=== PATIENT | male | born 1980 | race Caucasian/White ===

== ENCOUNTER 2020-06-20 18:56 | Emergency (ER) | payer OTHER, SELFPAY ==
[2020-06-20 18:56] VITALS: BP 161/112; PULSE 92; RESP 16; TEMP 36.4; O2SAT 98; BMI 38.9
--- NOTE | 2020-06-20 19:23 | ED.VIS.GEN ---
History of Present Illness Chief Complaint: Laceration Informant: Patient Narrative: 39-year-old male with no significant past medical history presents with concern for right lower extremity laceration. States that he fell into a sharp metal object at work causing a laceration to his right lower extremity. Denies any numbness or tingling. Past Medical History - Allergies and Home Meds Allergies/Adverse Reactions: Allergies No Known Allergies Allergy (Verified 06/20/20 18:58) Primary Care Physician: Francisco Gill MD [STAFF PHYSICIAN] - Past Medical History: None Surgical History: noncontributory Lives: With Family Review of Systems General: Denies: Chills, Fever, Sweats Eyes: Denies: Visual changes - bilaterally, Diplopia ENT: Denies: Rhinorrhea, Sore throat Cardiovascular: Denies: Chest pain, Palpitations Respiratory: Denies: Dyspnea, Cough, Dyspnea on exertion Gastrointestinal: Denies: Abdominal pain, Nausea, Vomiting, Diarrhea, Melena, Hematochezia Genitourinary: Denies: Dysuria, Hematuria, Frequency Musculoskeletal: Denies: Back pain, Extremity Pain Skin: Reports: Wounds. Denies: Rash Neurological: Denies: Headache, Weakness, Numbness Physical Exam Vital Signs/Narrative: Vital Signs Temp Pulse Resp BP Pulse Ox 06/20/20 18:56 97.5 F L 92 16 161/112 H 98 Inital Vital Signs reviewed: Yes General: Well nourished, Well developed, No Acute Distress Head: Normocephalic, Atraumatic Eyes: Perrl, EOMI ENT: Moist mucous membranes, No rhinorrhea Neck: Supple, Nontender Cardiovascular: Regular rate, Regular rhythm, No murmurs Respiratory: No distress, CTA bilaterally, Chest nontender Abdomen: Soft, Nontender, Nondistended, Normal bowel sounds Back: Nontender, Normal Inspection Extremities: Nontender, No edema Skin: Normal color, No rash, - - Linear L shaped laceration to the RLE. Gaping. 7 cm. Neurological: Alert, Oriented x3, Cranial nerves II-XII grossly intact, Normal Strength, Normal Sensation Psychological: Normal affect, Normal Mood Diagnostic/Tx/Re-eval - Medical Decision Making Patient appears well and nontoxic. Laceration repaired with eleven 4-0 Ethilon sutures. Wound was thoroughly irrigated following local anesthetization with lidocaine and epinephrine. Patient will be covered with Keflex prophylactically for 5 days. Asked to follow-up with primary care. Tetanus updated. Discharged home in stable condition. Procedures - Lacerations No standard instances Length: 2.76 in Depth: Sub Q Shape: Flap Laceration repair: Irrigated, Lidocaine with epi Irrigated (ml): 250 Number of Sutures/Cherie: 11 Suture Information: Ethilon, Simple, 4-0 ED Disposition - Plan for ED Patient: Disposition: Home or Assisted Living Instructions: ED Laceration All Closures Prescriptions: Cephalexin [Keflex] 500 mg PO Q6 #20 cap Prescription Printed Referrals: Francisco Gill MD [STAFF PHYSICIAN] - Additional Instructions: These follow-up at either this emergency department or with your primary care physician in 10 days for removal of the sutures. Return for any drainage or surrounding redness.
[2020-06-20] MEDS: Diphth,Pertuss(Acell),Tet Vac 0.5 ML Vial IM (21:07)
[2020-06-20] MEDS: Cephalexin 250 MG Capsule 500 MG PO (21:10)
== END 2020-06-20 21:26 | disposition home or self-care (01) ==
PROVIDERS: Emergency Provider Emergency Medicine; PCP Family Medicine
DX: S81.811A Laceration without foreign body, right lower leg, initial encounter (principal); W19.XXXA Unspecified fall, initial encounter
CPT/HCPCS: 12002; 90715; 96372; 99283

== ENCOUNTER → 2020-07-31 09:20 | Outpatient (CLI) | payer OTHER, SELFPAY ==
[2020-07-31 11:00] LABS: ALB/GLOB Ratio 0.9 RATIO (0.9-2.4); AST(SGOT) 19 U/L (15-37); Alanine Aminotransfer ALT/SGPT 35 U/L (16-61); Albumin, Serum 3.6 g/dL (3.2-5.0); Alkaline Phosphatase 72 U/L (45-117); Anion Gap 4 (5-15); BUN 16 mg/dL (7-18); BUN/Creat Ratio 17.6 RATIO (10-20); Calcium,Total 8.4 mg/dL (8.5-10.1); Chloride 106 mmol/L (98-107); Cholesterol 142 mg/dL (200); Creatinine, Serum 0.91 mg/dL (0.70-1.30); EST Glomerular Filtration Rate 98 mL/min (>60); Est Glom Filt Rate - Afr Amer 119 mL/min (>60); Globulin 3.9 g/dL (2.2-4.2); Glucose 91 mg/dL (74-106); High Density Lipoprotein 46 mg/dL; Protein, Total 7.5 g/dL (6.4-8.2); Sodium Level 140 mmol/L (136-145); Thyroid Stim Hormone (TSH) 1.02 uIU/mL (0.358-3.74); Triglycerides 83 mg/dL; Very Low Density Lipoprotein 17 mg/dL (5-40)
== END ==
PROVIDERS: PCP Family Medicine; Referring Provider Family Medicine; Visit Provider Family Medicine
DX: Z00.00 Encounter for general adult medical examination without abnormal findings (principal); E78.1 Pure hyperglyceridemia
CPT/HCPCS: 36415; 80053; 80061; 84443

== ENCOUNTER → 2020-08-20 | Outpatient (CLI) | payer OTHER, SELFPAY | END | disposition home or self-care (01) | PROVIDERS: PCP Family Medicine; Visit Provider Family Medicine | DX: U07.1 COVID-19 (principal); J32.9 Chronic sinusitis, unspecified | CPT/HCPCS: 87635; U0003 ==

== ENCOUNTER → 2020-08-24 11:11 | Outpatient (CLI) | payer OTHER, SELFPAY ==
--- NOTE | 2020-08-24 11:16 | RAD_ITS ---
STUDY: X-RAY CHEST REASON FOR EXAM: Male, 40 years old. COUGH, SOB AND CHEST TIGHTNESS. PATIENT STATES WAS EXPOSED TO COVID. TECHNIQUE: PA and lateral views of the chest. COMPARISON: None. FINDINGS: The lungs are clear and expanded. There is no demonstrated pleural abnormality. Normal size heart. Normal mediastinum and kali. Normal visualized pulmonary arteries. Normal visualized aortic arch and descending thoracic aorta. Normal visualized thoracic spine. Normal visualized ribs, clavicles, and shoulders. There is no demonstrated abnormality of the visualized soft tissue structures of the upper abdomen. RAD/Chest PA and Lateral IMPRESSION: Normal x-ray examination of the chest. Electronically Signed: Ed Forrester, at 13:21 EST , Service support ,
== END ==
PROVIDERS: PCP Family Medicine; Referring Provider Family Medicine; Visit Provider Family Medicine
DX: R07.9 Chest pain, unspecified (principal)
CPT/HCPCS: 71046

== ENCOUNTER → 2020-11-23 | Outpatient (CLI) | payer OTHER, SELFPAY | END | disposition home or self-care (01) | LOC: LABSPEC 15:52 | PROVIDERS: PCP Family Medicine; Referring Provider Family Medicine; Visit Provider Family Medicine | DX: J32.9 Chronic sinusitis, unspecified (principal); R09.89 Other specified symptoms and signs involving the circulatory and respiratory systems | CPT/HCPCS: 87635; U0005; U0003 ==

== ENCOUNTER → 2021-09-18 | Outpatient (CLI) | payer OTHER, SELFPAY | END | disposition home or self-care (01) | LOC: LABSPEC 15:18 | PROVIDERS: PCP Family Medicine; Visit Provider Family Medicine | DX: U07.1 COVID-19 (principal) | CPT/HCPCS: 87635; U0005; U0003 ==

== ENCOUNTER → 2023-08-10 | Outpatient (CLI) | payer OTHER, SELFPAY ==
[2023-08-10 11:05] LABS: AST(SGOT) 23 U/L (15-37); Alanine Aminotransfer ALT/SGPT 32 U/L (16-61); Albumin, Serum 3.9 g/dL (3.2-5.0); Alkaline Phosphatase 68 U/L (45-117); Anion Gap 7 (5-15); BUN 17 mg/dL (7-18); BUN/Creat Ratio 18.9 RATIO (10-20); Calcium,Total 8.9 mg/dL (8.5-10.1); Chloride 104 mmol/L (98-107); EST Glomerular Filtration Rate 98 mL/min (>60); Est Glom Filt Rate - Afr Amer 118 mL/min (>60); Globulin 3.8 g/dL (2.2-4.2); Glucose 98 mg/dL (74-106); Potassium 3.8 mmol/L (3.5-5.1); Protein, Total 7.7 g/dL (6.4-8.2); Sodium Level 138 mmol/L (136-145)
[2023-08-10 11:14] LABS: Microalbumin,Random Urine 13.6 mg/L (NO RANGE EST.); Microalbumin:Creatinine Ratio 27.4 mg/g CRE (<30 mg/g CRE)
== END | disposition home or self-care (01) ==
LOC: MFPLAB 08:25
PROVIDERS: PCP Family Medicine; Visit Provider Family Medicine
DX: I10 Essential (primary) hypertension (principal)
CPT/HCPCS: 36415; 80053; 82043; 82570

== ENCOUNTER → 2024-10-31 | Outpatient (CLI) | payer OTHER, SELFPAY ==
[2024-10-31 15:53] LABS: ALB/GLOB Ratio 0.9 RATIO (0.9-2.4); AST(SGOT) 20 U/L (15-37); Alanine Aminotransfer ALT/SGPT 35 U/L (16-61); Albumin, Serum 3.7 g/dL (3.2-5.0); Alkaline Phosphatase 71 U/L (45-117); Anion Gap 5 (5-15); BUN 19 mg/dL (7-18); BUN/Creat Ratio 20.6 RATIO (10-20); Calcium,Total 9.2 mg/dL (8.5-10.1); Chloride 106 mmol/L (98-107); Cholesterol 176 mg/dL (200); Creatinine, Serum 0.92 mg/dL (0.70-1.30); EST Glomerular Filtration Rate 94 mL/min (>60); Est Glom Filt Rate - Afr Amer 114 mL/min (>60); Globulin 4.1 g/dL (2.2-4.2); Glucose 111 mg/dL (74-106); High Density Lipoprotein 49 mg/dL; Potassium 4.3 mmol/L (3.5-5.1); Protein, Total 7.8 g/dL (6.4-8.2); Sodium Level 139 mmol/L (136-145); Triglycerides 179 mg/dL; Very Low Density Lipoprotein 36 mg/dL (5-40)
[2024-10-31 16:32] LABS: Hemoglobin A1c 5.5 % (3.8-5.6)
[2024-10-31 17:02] LABS: Microalbumin,Random Urine 58.9 mg/L (NO RANGE EST.)
== END | disposition home or self-care (01) ==
LOC: MFPLAB 11:20
PROVIDERS: PCP Family Medicine; Referring Provider Family Medicine; Visit Provider Family Medicine
DX: I10 Essential (primary) hypertension (principal); E66.9 Obesity, unspecified
CPT/HCPCS: 36415; 80053; 80061; 82043; 82570; 83036

== ENCOUNTER 2025-06-08 08:31 | Day surgery (SDC) | payer OTHER, SELFPAY ==
[2025-06-08] VITALS (8 sets, daily range): BP systolic 138–165; BP diastolic 79–87; PULSE 75–99; RESP 16–17; TEMP 36.1–37.1; O2SAT 94–98; BMI 42.7
[2025-06-08] MEDS: Lactated Ringers 1,000 ML 15 ML IV (08:53)
--- NOTE | 2025-06-08 08:53 | HP.PCM_ITS ---
HPI - General General Date of Admission: 06/08/25 Date of Service: 06/08/25 Chief Complaint: Screening colonoscopy HPI Narrative SIMI HIGGINBOTHAM, is a 44 M who presents for screening colonoscopy. *[facility] established 8.1.25 pt presents to get scheduled for a colonoscopy. Has previously had 2 scopes in 2009 and 2010. Is not currently having any GI symptoms of concern and is scheduling for screening purposes. [facility] Medical History Wears glasses Asthma Former smoker Hypertension Home Medications ?Medication ?Instructions ?Recorded ?Last Taken ?Type loratadine 10 mg tablet (Claritin) 10 mg PO DAILY PRN allergy symptoms 06/30/20 06/07/25 History hydrochlorothiazide 12.5 mg tablet 12.5 mg PO QDAY 10/1506/07/25 History lisinopril 40 mg tablet 40 mg PO QDAY 04/21/2506/07 History Allergy/AdvReac Type Severity Reaction Status Date / Time No Known Allergies Allergy Verified 06/08/25 08:53 Family History Other Lung cancer Surgical History History of esophagogastroduodenoscopy (EGD) History of colonoscopy History of medial meniscus repair of left knee History of lateral meniscus repair of right knee History of surgery on lower extremity Hx of fracture of lower leg Social History Smoking Status: Former smoker alcohol intake: current alcohol intake frequency: holidays/special occasions only substance use type: does not use frequency: 3-4 times per week ROS Constitutional Constitutional: Denies fatigue, fever(s), poor appetite, weight gain or weight loss Gastrointestinal Gastrointestinal: Denies belching, bloating, change in bowel habits, change in stool character, chewing difficulty, coffee ground emesis, constipation, cramping, diarrhea, dyspepsia, dysphagia, early satiety, excessive flatus, fecal incontinence, heartburn, hematemesis, hematochezia, hemorrhoids, loose stools, melena, nausea, odynophagia, rectal bleeding, tenesmus, vomiting or weight changes Physical Exam Const alert, oriented x3, no apparent distress and healthy appearing General Appearance: cooperative GI normal to inspection, nondistended, normoactive bowel sounds, soft to palpation, non-tender and non-distended Percussion: normal to percussion Rectal Exam: deferred Assessment & Plan Assessment/Plan (1) Encounter for screening colonoscopy: PLAN: Assessment and Plan Assessment and Plan (1) Encounter for screening colonoscopy: Status: Acute Plan: 44-year-old gentleman comes in to set up a screening colonoscopy. He is about a colonoscopy in the past. He is not have any abdominal pain, chest pain or shortness of breath. Overall he is in fairly good health. His only past medical history is hypertension. He was explained alternatives, risk and benefits include not withstanding bleeding, infection, sepsis, perforation, need for emergent urgent . He will have an ASA of 3.
--- NOTE | 2025-06-08 09:03 | PCM.PRE.AN2 ---
ASA Classification* ASA Classification ASA Classification: 3 Assessment & Plan Anesthesia* Anesthesia Assessment Anesthesia Assessment: Discussed sedation and/or anesthesia options, risks, benefits, and alternatives with patient/parents/legal guardian/POA. Questions invited. The patient/parents/legal guardian/POA seems to understand and agrees to proceed with anesthesia plan. Reviewed the physical assessment, medical history, allergy history and patient home medications list prior to surgery/procedure/anesthetic and documented any changes. Performed airway and anesthesia risk assessments. Anesthesia Type Anesthesia Type: MAC History Source History Obtained from:: Patient and Chart Anesthesia Focused Assessment* Temperature: 98.6 F Pulse Rate: 99 Blood Pressure: 165/87 Respiratory Rate: 17 Pulse Ox: 98 Oxygen Delivery Method: Room Air Airway Assessment Mouth opens: >3 cm Mallampati Score: III Teeth Condition: Caps/Crowns (Patient has several crowns. They are all tight.) Neck Range of motion (ROM): Limited ROM (Slight Decrease) Labs Anesthesia Preop lab: CBC CHEMISTRY Potassium, (3.5-5.1) 4.3 mmol/L 10/31/24, 11:21 Sodium, (136-145) 139 mmol/L 10/31/24, 11:21 BUN, (7-18) 19 mg/dL H 10/31/24, 11:21 Creatinine, (0.70-1.30) 0.92 mg/dL 10/31/24, 11:21 Glucose, (74-106) 111 mg/dL H 10/31/24, 11:21 TSH, (0.358-3.74) 1.02 uIU/mL 07/31/20, 09:23 COAG Pre-Assessment Diagnosis/Proposed Procedure Planned Operative Procedure(s): COLONOSCOPY Anesthesia History Anesthesia History - die try out worker stamping: Anesthesia History - die try out worker stamping Hx Hospitalization No 06/05/25 16:09 Any Problems With Anesthesia No 06/05/25 16:09 Cholinesterase deficiency No 06/05/25 16:09 You/Your Family Experience No 06/05/25 16:09 fever (hyperthermia) with Relationship Recent Exposure to Contagious No 06/08/25 08:54 Disease Does patient have nerve No 06/05/25 16:09 stimulator Patient instructed to have device shut off --Does patient have Pacemaker No 06/08/25 08:54 or ICD? When Was Last Pacemaker Check QUESTION #4 FULL TEXT: You/Your Family Experience fever (hyperthermia) with Anesthesia Last Oral Intake Last Oral intake: Last Oral Intake NPO since 00:00 06/08/25 08:54 Meds taken in AM with sips of water? Meds patient instructed to take am of surgery Any additional information?: Yes NPO since: 05:30 (Patient had water at 5:30 AM.) PONV PONV - die try out worker stamping: PONV - die try out worker stamping Female No 06/05/25 16:09 HX of Motion Sickness No 06/05/25 16:09 HX of N/V After Surgery No 06/05/25 16:09 Non-Smoker Yes 06/05/25 16:09 Duration of Surgery greater No 06/05/25 16:09 than 60 minutes Number of Risk Factors 1 06/05/25 16:09 PONV Score Low Risk 06/05/25 16:09 Height & Weight Height & Weight: Anesthesia: Height & Weight Height 5 ft 11 in 06/08/25 08:54 Weight: 139 kg 06/08/25 08:54 Body Mass Index (BMI) 42.7 06/08/25 08:54 Respiratory Assessment Respiratory Assessment - die try out worker stamping: Respiratory Tract Infection Hx - die try out worker stamping Hx Respiratory Tract Infection No 06/05/25 16:09 STOP Sleep Apnea STOP Sleep Apnea - die try out worker stamping: STOP Sleep Apnea - die try out worker stamping Hx Hypertension Yes: PER PT, CONTROLLED ON 06/05/25 16:09 MEDS Hx Sleep Apnea No 06/05/25 16:09 CPAP BIPAP Do you snore loudly (louder No 06/05/25 16:09 than talking or can be heard Do you often feel tired/ No 06/05/25 16:09 fatigued/ sleepy during daytime? Has anyone observed you stop No 06/05/25 16:09 breathing during sleep? STOP Results Negative 06/05/25 16:09 QUESTION #5 FULL TEXT : Do you snore loudly (louder than talking or can be heard through closed doors)? Tobacco Use History Tobacco Use History - die try out worker stamping: Tobacco Use History - die try out worker stamping Tobacco Use Smoking Status Former smoker 06/05/25 16:09 Hx Tobacco Use No 06/05/25 16:09 Years Smoking Packs Smoked per Day Smoking Cessation Date was No - quit smoking greater 06/05/25 16:09 within the last 15 years than 15 years ago Hx Smoking Cessation Date Hx Smoking Cessation Counseling Hematologic Medial History Hematologic Hx - die try out worker stamping: Hematologic Medical Hx - varnisher plasticoater Hx of Blood Transfusion No 06/05/25 16:09 Hx of Transfusion in last 3 No 06/05/25 16:09 Months Date of Last Transfusion (if within last 3 months) Ever experience any problems No 06/05/25 16:09 with transfusion(s)? Specify any problems Hx of Preganancy in last 3 N/A 06/05/25 16:09 Months Nurse Filling Out Transfusion MGRIFFITH 06/05/25 16:09 & Questions: Date: 06/05/25 06/05/25 16:09 Time: 16:11 06/05/25 16:09 Patient unable to answer at this time (ie. confused, unrespo /Reproduction History /Reproductive History - die try out worker stamping: /Reproductive Hx- die try out worker stamping Hx Now No 06/05/25 16:09 Gestational Age (in weeks): EDC: Hx Hx Para Hx Section SAB No 06/05/25 16:09 Active Medications Active Medications: Current Medications Generic Name Dose Route Start Last Admin Trade Name Freq PRN Reason Stop Dose Admin Lactated Ringer's 1,000 mls @ 15 mls/hr 06/08/25 08:45 06/08/25 08:53 IV 15 mls/hr .Q48H CHERI Administration PFSH Medical History Wears glasses Asthma Former smoker Hypertension Home Medications ?Medication ?Instructions ?Recorded ?Last Taken ?Type loratadine 10 mg tablet (Claritin) 10 mg PO DAILY PRN allergy symptoms 06/30/20 06/07/25 History hydrochlorothiazide 12.5 mg tablet 12.5 mg PO QDAY 04/21/25 06/07/25 History lisinopril 40 mg tablet 40 mg PO QDAY 04/21/25 06/07/25 History Allergy/AdvReac Type Severity Reaction Status Date / Time No Known Allergies Allergy Verified 06/08/25 08:53 Family History Other Lung cancer Surgical History History of esophagogastroduodenoscopy (EGD) History of colonoscopy History of medial meniscus repair of left knee History of lateral meniscus repair of right knee History of surgery on lower extremity Hx of fracture of lower leg Social History Smoking Status: Former smoker alcohol intake: current alcohol intake frequency: holidays/special occasions only substance use type: does not use frequency: 3-4 times per week Review of Systems (Anesthesia) ROS Narrative System reviewed and no additional complaints, except as documented.
--- NOTE | 2025-06-08 09:30 | COLBX_PTH ---
PATIENT: SIMI HIGGINBOTHAM LOC: EN U#:[id number] AGE/SX: 44/M ROOM: RE06/08/[address]: Dr. Pedro Luis Bullock DO : 1980 BED: DIS: 06/08/2025 SPEC #: [id number] RECD: 06/08/25 11:46 STATUS: KESHIA REMarissa #: [id number] SANJAY: 06/08/25 09:[address]: Pedro Luis Bullock DEPT: SURGICAL PATHOLOGY RECD BY: Marquis Chauhan ENTERED: 06/08/25 12:26 SP TYPE: COLON BX ROSIO DR: Dr. Rajat Lee MD Tissues: A - Cecum, NOS Procedures: Surgery Specimen Level IV HEADER OPERATION: Colonoscopy biopsy PRE-OP DIAGNOSIS: Encounter for screening colonoscopy TISSUE SUBMITTED: A- Cecal polyp biopsy MICROSCOPIC DIAGNOSIS A. Cecum, polyp, biopsy: * Tubular adenoma. MICROSCOPIC DESCRIPTION Slides are reviewed. GROSS DESCRIPTION A. Received in fixative is one container labeled with the patient's name and designated Cecal polyp biopsy. The specimen consists of one irregular fragment of light rodriguez soft tissue that measures 0.5 cm. The specimen is totally submitted in one cassette. AR 06/08/2025 CPT:35223
--- NOTE | 2025-06-08 09:56 | OP.PROVAT_ITS ---
06/08/2025 Joshua Lee [address] [place] [address] Re : Colonoscopy procedure for Ryan Frances Dear Dr. Lee This procedure was performed on May. My impressions and recommendations are as follows: Impressions : - Diverticulosis in the recto-sigmoid colon and in the sigmoid colon. - One 5 mm polyp in the cecum, removed with a cold biopsy forceps. Resected and retrieved. Recommendations : - Repeat colonoscopy in 5 years for surveillance. - Continue present medications. My findings are described in the full procedure note, which is enclosed. If I can be of further assistance, please feel free to contact me at . Sincerely, Pedro Luis Bullock, 06/08/2025 9:55:46 AM This report has been signed electronically.
--- NOTE | 2025-06-08 09:56 | OP.COLON_ITS ---
Patient Name: Ryan Frances Procedure Date: 06/08/2025 9:18 AM Date of : 1980 Age: 44 Procedure: Colonoscopy Indications: Screening for colorectal malignant neoplasm Providers: Pedro Luis Bullock DO Referring MD: Joshua Lee Medicines: Monitored Anesthesia Care Patient Profile: This is a 44 year old male. Refer to note in patient chart for documentation of history and physical. Last Colonoscopy: none. The patient's first colonoscopy is today. Complications: No immediate complications. Procedure: Pre-Anesthesia Assessment: - Prior to the procedure, a History and Physical was performed, and patient medications and allergies were reviewed. The patient is competent. The risks and benefits of the procedure and the sedation options and risks were discussed with the patient. All questions were answered and informed consent was obtained. Patient identification and proposed procedure were verified by the physician in the pre-procedure area. Mental Status Examination: alert and oriented. Airway Examination: normal oropharyngeal airway and neck mobility. Respiratory Examination: clear to auscultation. CV Examination: normal. Prophylactic Antibiotics: The patient does not require prophylactic antibiotics. Prior Anticoagulants: The patient has taken no anticoagulant or antiplatelet agents. ASA Grade Assessment: II - A patient with mild systemic disease. After reviewing the risks and benefits, the patient was deemed in satisfactory condition to undergo the procedure. The anesthesia plan was to use monitored anesthesia care (MAC). Immediately prior to administration of medications, the patient was re-assessed for adequacy to receive sedatives. The heart rate, respiratory rate, oxygen saturations, blood pressure, adequacy of pulmonary ventilation, and response to care were monitored throughout the procedure. The physical status of the patient was re-assessed after the procedure. After I obtained informed consent, the scope was passed under direct vision. Throughout the procedure, the patient's blood pressure, pulse, and oxygen saturations were monitored continuously. The Colonoscope was introduced through the anus and advanced to the cecum, identified by appendiceal orifice and ileocecal valve. The colonoscopy was performed without difficulty. The patient tolerated the procedure well. The quality of the bowel preparation was adequate. The ileocecal valve, appendiceal orifice, and rectum were photographed. Scope In: 9:36:04 AM Scope Withdrawal Time 0 hours 6 minutes 48 seconds Scope Out: 9:44:53 AM Total Procedure Duration Time 0 hours 8 minutes 49 seconds Findings: The perianal and digital rectal examinations were normal. A few small-mouthed diverticula were found in the recto-sigmoid colon and sigmoid colon. A 5 mm polyp was found in the cecum. The polyp was sessile. The polyp was removed with a cold biopsy forceps. Resection and retrieval were complete. Verification of patient identification for the specimen was done. Estimated blood loss was minimal. Impression: - Diverticulosis in the recto-sigmoid colon and in the sigmoid colon. - One 5 mm polyp in the cecum, removed with a cold biopsy forceps. Resected and retrieved. Recommendation: - Repeat colonoscopy in 5 years for surveillance. - Continue present medications. Procedure Code(s): --- Professional --- 25283, Colonoscopy, flexible; with biopsy, single or multiple CPT copyright 2021 [employer]. All rights reserved. The codes documented in this report are preliminary and upon consumer analyst review may be revised to meet current compliance requirements. Pedro Luis Bullock DO 06/08/2025 9:55:46 AM This report has been signed electronically. Number of Addenda: 0 Note Initiated On: 06/08/2025 9:18 AM
--- NOTE | 2025-06-08 09:58 | PCM.POST.ANE ---
Anesthesia: Postop Eval I Current Vital Signs Temperature: 97 F Pulse Rate: 88 Blood Pressure: 138/81 Respiratory Rate: 16 Pulse Ox: 96 Oxygen Delivery Method: Room Air Assessment Airway patent: Yes Spontaneous unlabored respirations: Yes Mental status: Awake and Calm nausea: No Vomiting: No Anesthesia Complication: No Fluid Hydration Crystalloid volume administer (ml): 200 Total IV fluid infused: 200 Progress Note Anesthesia document: Postop Eval 1 completed: Yes
--- NOTE | 2025-06-08 12:51 | POSTOPAN2_ITS ---
Anesthesia Postop Eval I Sum Postop Eval Completion status Anesthesia document: Postop Eval 1 completed: Yes Anesthesia Postop Eval I Summary Anesthesia Postop Eval I Summary: Anesthesia Postop Eval I: Assessment Summary Airway patent Yes 06/08/25 09:58 MACHINE [email or web address].[email or web address] Spontaneous unlabored Yes 06/08/25 09:58 MACHINE SNELLER.[email or web address] respirations Mental status Awake,Calm 06/08/25 09:58 MACHINE [email or web address].GDOTT nausea No 06/08/25 09:58 MACHINE SNELLER.GDOTT Vomiting No 06/08/25 09:58 MACHINE SNELLER.GDOTT Anesthesia Postop Eval I: Fluid Summary Crystalloid volume administer 200 06/08/25 09:58 MACHINE SNELLER.GDOTT (ml) Colloids volume administered ( ml) Blood Product volume administered (ml) Total IV fluid infused 200 06/08/25 09:58 MACHINE SNELLER.GDOTT Anesthesia Postop Eval I: Summary Notes Anesthesia Complication No 06/08/25 09:58 MACHINE SNELLER.GDOTT Anesthesia Complication Comment: Post-operative progress note Anesthesia: Postop Eval II Evaluation Mental status: Awake and Calm Pain Level: 0 nausea: No Vomiting: No Complications Anesthesia Complication: No
--- NOTE | 2025-06-08 12:51 | PCM.POSTANE2 ---
Anesthesia Postop Eval I Sum Postop Eval Completion status Anesthesia document: Postop Eval 1 completed: Yes Anesthesia Postop Eval I Summary Anesthesia Postop Eval I Summary: Anesthesia Postop Eval I: Assessment Summary Airway patent Yes 06/08/25 09:58 INSURANCE CLAIMS REPRESENTATIVE.GDOTT Spontaneous unlabored Yes 06/08/25 09:58 INSURANCE CLAIMS REPRESENTATIVE.GDOTT respirations Mental status Awake,Calm 06/08/25 09:58 INSURANCE CLAIMS REPRESENTATIVE.GDOTT nausea No 06/08/25 09:58 INSURANCE CLAIMS REPRESENTATIVE.GDOTT Vomiting No 06/08/25 09:58 INSURANCE CLAIMS REPRESENTATIVE.GDOTT Anesthesia Postop Eval I: Fluid Summary Crystalloid volume administer 200 06/08/25 09:58 INSURANCE CLAIMS REPRESENTATIVE.GDOTT (ml) Colloids volume administered ( ml) Blood Product volume administered (ml) Total IV fluid infused 200 06/08/25 09:58 INSURANCE CLAIMS REPRESENTATIVE.GDOTT Anesthesia Postop Eval I: Summary Notes Anesthesia Complication No 06/08/25 09:58 INSURANCE CLAIMS REPRESENTATIVE.GDOTT Anesthesia Complication Comment: Post-operative progress note Anesthesia: Postop Eval II Evaluation Mental status: Awake and Calm Pain Level: 0 nausea: No Vomiting: No Complications Anesthesia Complication: No
== END 2025-06-08 10:36 | disposition home or self-care (01) ==
LOC: EN 08:32 → AC 08:33
PROVIDERS: PCP Family Medicine; Referring Provider Family Medicine; Visit Provider Internal Medicine Gastroenterology
PROC: 0DJD8ZZ Inspection of Lower Intestinal Tract, Via Natural or Artificial Opening Endoscopic (ICD-10-PCS; CPT 45378; principal; 2025-06-08 09:25)
DX: Z12.11 Encounter for screening for malignant neoplasm of colon (principal); K57.30 Diverticulosis of large intestine without perforation or abscess without bleeding; I10 Essential (primary) hypertension; Z79.899 Other long term (current) drug therapy; Z87.891 Personal history of nicotine dependence; J45.909 Unspecified asthma, uncomplicated; D12.0 Benign neoplasm of cecum
CPT/HCPCS: 45380; 88305; J2405